=== PATIENT | male | born 1975 | race Caucasian/White ===

== ENCOUNTER → 2021-01-03 02:48 | Outpatient (CLI) | payer OTHER, SELFPAY ==
[2021-01-03 17:43] LABS: SARS-CoV-2 RNA PCR Negative
== END ==
PROVIDERS: Visit Provider Internal Medicine Gastroenterology
DX: Z01.812 Encounter for preprocedural laboratory examination (principal); Z20.822 Contact with and (suspected) exposure to COVID-19
CPT/HCPCS: C9803; U0003; U0005

== ENCOUNTER 2021-01-06 01:17 | Day surgery (SDC) | payer OTHER, SELFPAY ==
[2020-12-23 12:43] VITALS: BMI 39.4
[2021-01-06 08:29] VITALS: BP 130/85; PULSE 60; RESP 16; TEMP 36.4; O2SAT 98
[2021-01-06] MEDS: LACTATED RINGERS 1,000 ML 150 ML IV CONT (08:32)
[2021-01-06 08:37] LABS: Glucose Point of Care 85 mg/dl (65-105)
--- NOTE | 2021-01-06 08:58 | WPDGICN ---
GI Consult Note Consult date/time: 01/06/21 08:58 HPI: For pleasant gentleman seen in consultation regarding colonoscopy. Impression: This gentleman with alternating constipation and diarrhea. This may be compatible with IBS. Did have rectal bleeding which may be perianal in origin. Underlying inflammatory neoplastic disease should be excluded.The patient does have a family history of colorectal cancer. Here of a gentleman with underlying reflux disease. He complains of postprandial bloating and chest tightness. Frequent hiccups and belching are also reported. This may indicate underlying peptic ulcer disease. this may be compatible with underlying dyspepsia. Obesity. Diabetes mellitus. HTN. HLD. Recommendation: Colonoscopy. Patient wishes to have an EGD in the future. He wishes to stay at [facility]. Will refer to with the other GI physicians. History: Very pleasant gentleman is here for colonoscopy. He has a family history of colorectal cancer. He reports alternating constipation and diarrhea. He is here for colonoscopy. He does have a complaints of abdominal bloating and postprandial chest tightness and hiccups. He also has complaints of belching. Does take NSAIDs. Physical examination: General: very pleasant patient in no acute distress. HEENT: Head was normocephalic sclerae is clear mouth without masses neck was supple. Heart: Rate rhythm regular without S3 or S4. Lungs: CTA. Abdomen: Soft with no guarding or rigidity. Bowel sounds were active. Neurologic: Cranial nerves 2 through 12 intact. No focal defects. No clonus. Musculoskeletal system: Revealed no joint tenderness or swelling no muscle atrophy. Extremities: Reveal no significant edema. Skin: Warm and dry with normal turgor. Mental status: intact. Patient is alert and oriented. Review of Systems Review of Systems: All systems reviewed & are unremarkable except as noted in HPI and below REPLACED BY [facility] Family History Family History (Updated 03/19/14 @ 07:13 by DOCTOR UNKNOWN) Father Family history of coronary artery disease Family history of congestive heart failure Mother Family history of coronary artery disease Other Diabetes mellitus Family history of tuberculosis Hypertension Social History Social History Alcohol intake: never Substance use type: does not use Living arrangements: with family Gender identity (if verbalized by the patient): Male Spiritual care concerns: No Meds Home Medications and Allergies Home Medications Medication Instructions Recorded Confirmed Type aspirin [Adult Low Dose Aspirin] 81 mg PO DAILY 12/23/20 12/23/20 History lisinopril-hydrochlorothiazide 1 tablet PO DAILY 12/23/20 12/23/20 History meloxicam 15 mg PO DAILY 12/23/20 12/23/20 History montelukast 10 mg PO DAILY 12/23/20 12/23/20 History omeprazole 40 mg PO DAILY 12/23/20 12/23/20 History rosuvastatin 40 mg PO DAILY 12/23/20 12/23/20 History Allergies Allergy/AdvReac Type Severity Reaction Status Date / Time No Known Allergies Unverified 01/06/21 08:27 Vital Signs Vital Signs - 24 hr 01/06/21 08:29 Temperature 36.4 C Pulse Rate 60 Respiratory Rate 16 Blood Pressure 130/85 Pulse Oximetry 98
--- NOTE | 2021-01-06 09:20 | WPDGICN ---
GI Consult Note Consult date/time: 01/06/21 09:20 HPI: Reason for consultation is colonoscopy. This very pleasant gentleman seen request of the primary physician. Impression: Here we have a gentleman with alternating constipation and diarrhea. This compatible with IBS. He does report rectal bleeding. Bleeding may be perianal in origin. Underlying an inflammatory neoplastic disease should be excluded. He does have a family history of colon cancer. GERD with atypical chest pain and abdominal bloating. This may be secondary to a lying peptic ulcer disease. Diabetes mellitus. HTN. HLD. Obesity. Recommendation: Colonoscopy. EGD will be arranged. He will do this through the [facility]. History: This very pleasant gentleman is being evaluated for colon cancer and polyp screening. Patient has a family history of colon cancer. He reports alternating constipation and diarrhea with rectal bleeding. The patient has a family history of colon cancer. He has never had a colonoscopy. He does report history of reflux disease. He has been complaining of increasing had cups and belching postprandial period. He has significant abdominal bloating. He has had a cardiac workup which is negative. He does admit to taking NSAIDs. Physical examination: General: very pleasant patient in no acute distress. HEENT: Head was normocephalic sclerae is clear mouth without masses neck was supple. Heart: Rate rhythm regular without S3 or S4. Lungs: CTA. Abdomen: Soft with no guarding or rigidity. Bowel sounds were active. Neurologic: Cranial nerves 2 through 12 intact. No focal defects. No clonus. Musculoskeletal system: Revealed no joint tenderness or swelling no muscle atrophy. Extremities: Reveal no significant edema. Skin: Warm and dry with normal turgor. Mental status: intact. Patient is alert and oriented. Review of Systems Review of Systems: All systems reviewed & are unremarkable except as noted in HPI and below [facility] Family History Family History (Updated 03/19/14 @ 07:13 by DOCTOR UNKNOWN) Father Family history of coronary artery disease Family history of congestive heart failure Mother Family history of coronary artery disease Other Diabetes mellitus Family history of tuberculosis Hypertension Social History Social History Alcohol intake: never Substance use type: does not use Living arrangements: with family Gender identity (if verbalized by the patient): Male Spiritual care concerns: No Meds Home Medications and Allergies Home Medications Medication Instructions Recorded Confirmed Type aspirin [Adult Low Dose Aspirin] 81 mg PO DAILY 12/23/20 12/23/20 History lisinopril-hydrochlorothiazide 1 tablet PO DAILY 12/23/20 12/23/20 History meloxicam 15 mg PO DAILY 12/23/20 12/23/20 History montelukast 10 mg PO DAILY 12/23/20 12/23/20 History omeprazole 40 mg PO DAILY 12/23/20 12/23/20 History rosuvastatin 40 mg PO DAILY 12/23/20 12/23/20 History Allergies Allergy/AdvReac Type Severity Reaction Status Date / Time No Known Allergies Unverified 01/06/21 08:27 Vital Signs Vital Signs - 24 hr 01/06/21 08:29 Temperature 36.4 C Pulse Rate 60 Respiratory Rate 16 Blood Pressure 130/85 Pulse Oximetry 98
--- NOTE | 2021-01-06 09:31 | WPDANESEPPF ---
Anes - Initial Pre Proc Eval Procedure: Operation Date: 01/06/21 09:30 Proposed Procedures p Screening Colonoscopy - Huey Sánchez DO Date/Time: 01/06/21 09:31 Surgeon: Huey Sánchez DO Pre Op Diagnosis: neoplasm screening Patient Data Age: 45 Gender: M Height: 6 ft Weight: 130.1 kg Last Vital Signs Temp 97.6 F 01/06/21 08:29 Pulse 60 01/06/21 08:29 Resp 16 01/06/21 08:29 BP 130/85 01/06/21 08:29 Pulse Ox 98 01/06/21 08:29 Allergies Allergy/AdvReac Type Severity Reaction Status Date / Time No Known Allergies Unverified 01/06/21 08:27 Home Medications Medication Instructions Recorded Confirmed Type aspirin [Adult Low Dose Aspirin] 81 mg PO DAILY 12/23/20 12/23/20 History lisinopril-hydrochlorothiazide 1 tablet PO DAILY 12/23/20 12/23/20 History meloxicam 15 mg PO DAILY 12/23/20 12/23/20 History montelukast 10 mg PO DAILY 12/23/20 12/23/20 History omeprazole 40 mg PO DAILY 12/23/20 12/23/20 History rosuvastatin 40 mg PO DAILY 12/23/20 12/23/20 History Laboratory Tests 01/06/21 08:34 POC Capillary Glucose 85 mg/dl mg/dl (65-105) Patient hx anesthesia problems: none Family hx anesthesia problems: none PMFSH Past Medical History Medical History (Updated 01/06/21 @ 09:31 by Danielito Robert MD) Diabetes no longer on medications GERD (gastroesophageal reflux disease) Hyperlipidemia Hypertension Family History Family History (Updated 03/19/14 @ 07:13 by DOCTOR UNKNOWN) Father Family history of coronary artery disease Family history of congestive heart failure Mother Family history of coronary artery disease Other Diabetes mellitus Family history of tuberculosis Hypertension Social History Social History Alcohol intake: never Substance use type: does not use Living arrangements: with family Gender identity (if verbalized by the patient): Male Spiritual care concerns: No Anes - Eval Final PreProcedure Day of Procedure 01/06/21 09:31 Patient weight: obese Heart: regular rate and rhythm Lungs: clear to auscultation Airway: Mallampati scale class III Neurological: alert and oriented Last oral intake: >/= 8 hours ASA classification: III Emergent: no Anesthetic plan: proceed Anesthesia type and monitoring: general GIVS and standard monitoring Informed Consent: The patient's anesthetic plan and its attendant risks and benefits were discussed with the patient/family/POA. Questions were solicited and answers provided to the satisfaction of the patient/family/POA.
--- NOTE | 2021-01-06 10:30 | SUR.OPER ---
H and P dictated x [address] gomez. having issues of it pulling over to pt chart. IT is aware and is working on this.
[2021-01-06 10:50] VITALS: BP 107/69; PULSE 60; RESP 20; O2SAT 97
[2021-01-06 11:00] VITALS: BP 116/79; PULSE 55; RESP 20; O2SAT 98
[2021-01-06 11:10] VITALS: PULSE 56; RESP 20; O2SAT 98
== END 2021-01-06 11:26 | disposition home or self-care (01) ==
PROVIDERS: Visit Provider Internal Medicine Gastroenterology
PROC: 0DJD8ZZ Inspection of Lower Intestinal Tract, Via Natural or Artificial Opening Endoscopic (ICD-10-PCS; CPT 45378; principal; 2021-01-06 09:30)
DX: K52.831 Collagenous colitis (principal); K52.832 Lymphocytic colitis; K63.5 Polyp of colon; K64.8 Other hemorrhoids; K59.00 Constipation, unspecified; Z80.0 Family history of malignant neoplasm of digestive organs; K21.9 Gastro-esophageal reflux disease without esophagitis; I10 Essential (primary) hypertension; E78.5 Hyperlipidemia, unspecified; E11.9 Type 2 diabetes mellitus without complications; E66.9 Obesity, unspecified; Z68.38 Body mass index [BMI] 38.0-38.9, adult; Z79.82 Long term (current) use of aspirin
CPT/HCPCS: 45385; 45380; 82948; 88305; J2704; J7120